=== PATIENT | male | born 1980 | race African-American/Black ===

== ENCOUNTER 2020-07-20 18:30 | Inpatient (IN) | payer OTHER ==
[2020-07-20 19:18] VITALS: BMI 26.4
--- NOTE | 2020-07-20 23:06 | HP ---
CIWA Score Nausea/Vomitin Muscle Tremors: 3 Anxiety: 3 Agitation: 2 Paroxysmal Sweats: 2 Orientation: 1-Uncertain about Date Tacttile Disturbances: 0-None Auditory Disturbances: 0-None Visual Disturbances: 0-None Headache: 3-Moderate CIWA-Ar Total Score: 16 - Admission Criteria OASAS Guidelines: Admission for Medically Managed Detox: Requires at least one of the followin. CIWA greater than 12 2. Seizures within the past 24 hours 3. Delirium tremens within the past 24 hours 4. Hallucinations within the past 24 hours 5. Acute intervention needed for co occurring medical disorder 6. Acute intervention needed for co occurring psychiatric disorder 7. Severe withdrawal that cannot be handled at a lower level of care (continued vomiting, continued diarrhea, abnormal vital signs) requiring intravenous medication and/or fluids 8. Admission [facility] Chief Complaint: Seeking admission to detox from alcohol Allergies/Adverse Reactions: Allergies Allergy/AdvReac Type Severity Reaction Status Date / Time No Known Allergies Allergy Verified 07/20/20 23:38 History of Present Illness: 40 years old male with a long history of alcohol dependence is seeking admission to detox. This is his 1st admission to detox and he reports that his last admission was at [facility]. He drinks 3 pints of Vodka and 2 x 6 packs of Muniz beer. He has medical history of diabetes type 2, hyperlipidemia, psych. history of depression, anxiety and denies suicidal ideation at this time. 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 Exam Limitations: No Limitations - Ebola screening Have you traveled outside of the country in the last 21 days: No Have you had contact with anyone from an Ebola affected area: No Have you been sick,other than usual withdrawal symptoms: No Do you have a fever: No - Review of Systems Constitutional: Chills, Loss of Appetite, Changes in sleep EENT: reports: No Symptoms Reported Respiratory: reports: No Symptoms reported Cardiac: reports: No Symptoms Reported GI: reports: Nausea, Poor Appetite, Abdominal cramping : reports: No Symptoms Reported Musculoskeletal: reports: No Symptoms Reported Integumentary: reports: Dryness, Flushing Neuro: reports: Tremors Endocrine: reports: No Symptoms Reported Hematology: reports: No Symptoms Reported Psychiatric: reports: Mood/Affect Appropiate, Anxious Other Systems: Reviewed and Negative Patient History - Patient Medical History Hx Anemia: No Hx Asthma: No Hx Chronic Obstructive Pulmonary Disease (COPD): No Hx Cancer: No Hx Cardiac Disorders: No Hx Congestive Heart Failure: No Hx Hypertension: No Hx Hypercholesterolemia: Yes HX Cerebrovascular Accident: No Hx Seizures: No Hx Dementia: No Hx Diabetes: Yes Hx Gastrointestinal Disorders: No Hx Liver Disease: No Hx Genitourinary Disorders: No Hx Sexually Transmitted Disorders: No Hx Renal Disease (ESRD): No Hx Thyroid Disease: No Hx Human Immunodeficiency Virus (HIV): No (Negative 2020) Hx Hepatitis C: No Hx Depression: Yes Hx Suicide Attempt: No (Denies suicidal ideation at this time) Hx Bipolar Disorder: No Hx Schizophrenia: Yes - Patient Surgical History Past Surgical History: Yes Hx Neurologic Surgery: No Hx Cataract Extraction: Yes Hx Cardiac Surgery: No Hx Lung Surgery: No Hx Abdominal Surgery: No Hx Appendectomy: No Hx Cholecystectomy: No Hx Genitourinary Surgery: No Hx Orthopedic Surgery: No Anesthesia Reaction: No - PPD History Previous Implant?: Yes Documented Results: Positive w/o proof Implanted On Prior [facility] Admission?: No PPD to be Administered?: Yes - Reproductive History Patient is a Female of Child Bearing Age (11 -55 yrs old): No (Male) - Smoking Cessation Smoking history: Current every day smoker Have you smoked in the past 12 months: Yes Aproximately how many cigarettes per day: 20 Hx Chewing Tobacco Use: No Initiated information on smoking cessation: Yes 'Breaking Loose' booklet given: 07/20/20 - Substance & Tx. History Hx Alcohol Use: Yes Hx Substance Use: Yes Substance Use Type: Alcohol, Cocaine, Marijuana Hx Substance Use Treatment: Yes ([facility]) - Substances abused Alcohol Substance route: Oral Frequency: Daily Amount used: 3 pints of Vodka and 2 x 6 packs of Muniz beer Age of first use: 12 Date of last use: 07/20/20 Admission Physical Exam BHS - Vital Signs Vital Signs: Vital Signs - 24 hr 07/20/20 19:17 Temperature 97.8 F Pulse Rate 87 Respiratory 19 Rate Blood Pressure 130/88 - Physical General Appearance: Yes: Moderate Distress, Intoxicated, Tremorous, Irritable, Sweating HEENTM: Yes: Within Normal Limits Respiratory: Yes: Lungs Clear, Normal Breath Sounds, No Respiratory Distress Neck: Yes: Within Normal Limits Breast: Yes: Breast Exam Deferred Cardiology: Yes: Regular Rhythm, Regular Rate Abdominal: Yes: Normal Bowel Sounds Genitourinary: Yes: Within Normal Limits Back: Yes: Normal Inspection Musculoskeletal: Yes: Back pain, Muscle Pain Extremities: Yes: Tremors Neurological: Yes: Within Normal Limits Integumentary: Yes: Warm Lymphatic: Yes: Within Normal Limits - Diagnostic (1) Alcohol dependence with withdrawal, uncomplicated Current Visit: Yes Status: Acute (2) Nicotine dependence Current Visit: Yes Status: Chronic Qualifiers: Nicotine product type: cigarettes Substance use status: uncomplicated Qualified Code(s): F17.210 - Nicotine dependence, cigarettes, uncomplicated (3) Cocaine dependence Current Visit: Yes Status: Chronic (4) Cannabis dependence Current Visit: Yes Status: Chronic (5) Type 2 diabetes mellitus Current Visit: Yes Status: Chronic Qualifiers: Diabetes mellitus complication status: without complication (6) Depression Current Visit: Yes Status: Chronic Qualifiers: Depression Type: unspecified Qualified Code(s): F32.9 - Major depressive disorder, single episode, unspecified (7) Anxiety Current Visit: Yes Status: Chronic (8) Schizophrenia Current Visit: Yes Status: Chronic (9) Hyperlipidemia Current Visit: Yes Status: Chronic Qualifiers: Hyperlipidemia type: unspecified Qualified Code(s): E78.5 - Hyperlipidemia, unspecified Cleared for Admission S - Detox or Rehab [facility] Level of Care: Medically Managed Detox Regimen/Protocol: Librium Claeared for Rehab Admission: No Breathalyzer - Breathalyzer Breathalyzer: 0.017 Urine Drug Screen - Test Device Lot number: [id number] Expiration date: 06/13/22 - Control Is test valid?: Yes - Results Drug screen NEGATIVE: No Urine drug screen results: THC-Marijuana, CÉSAR-Cocaine Inpatient Rehab Admission - Rehab Decision to Admit Inpatient rehab admission?: No
[2020-07-20] MEDS ORDERED: BISMUTH SUBSALICYLATE 524 MG/30 ML UD PO PRN (23:14)
[2020-07-20] MEDS ORDERED: hydrOXYzine PAMOATE 25 MG CAPSULE (FP) PO PRN (23:14)
[2020-07-20] MEDS ORDERED: ONDANSETRON *ODT* 4 MG TABLET SL PRN (23:14)
[2020-07-20] MEDS ORDERED: MENTHOL/PHENOL 1 EACH UD MM PRN (23:14)
[2020-07-20] MEDS ORDERED: MAGNESIUM CITRATE 300 ML BOTTLE PO PRN (23:14)
[2020-07-20] MEDS ORDERED: METHOCARBAMOL 500 MG TABLET PO PRN (23:14)
[2020-07-20] MEDS ORDERED: NICOTINE POLACRILEX 2 MG GUM BUC PRN (23:14)
[2020-07-20] MEDS ORDERED: chlordiazePOXIDE HCL 25 MG CAPSULE PO PRN (23:14)
[2020-07-20] MEDS ORDERED: MAG HYDROX/AL HYDROX/SIMETH 30 ML UNIT-DOSE CUP PO PRN (23:14)
[2020-07-20] MEDS ORDERED: MAGNESIUM HYDROX 2400MG/30ML ORAL SUSPENSION 30 ML CUP PO PRN (23:14)
[2020-07-20] MEDS ORDERED: ACETAMINOPHEN 325 MG TABLET (FP) PO PRN (23:14)
[2020-07-21] MEDS: chlordiazePOXIDE HCL 25 MG CAPSULE PO SCH ×5 (00:37→22:01)
[2020-07-21] MEDS ORDERED: INSULIN (NOVOLOG) ASPART 100 UNITS/ML 10ML VIAL SQ SCH (06:00)
[2020-07-21] MEDS ORDERED: PATIENT'S OWN MEDICATION (NON-FORMULARY) (Insulin Lispro [Humalog] 5 UNIT) SQ SCH (06:00)
[2020-07-21] MEDS ORDERED: INSULIN SLIDING SCALE (NOVOLOG) 1 VIAL SQ ONE (07:45)
--- NOTE | 2020-07-21 09:01 | EKG ---
Test Reason : Blood Pressure : / mmHG Vent. Rate : 093 BPM Atrial Rate : 093 BPM P-R Int : 170 ms QRS Dur : 080 ms QT Int : 352 ms P-R-T Axes : 061 060 034 degrees QTc Int : 437 ms NORMAL SINUS RHYTHM NORMAL ECG NO PREVIOUS ECGS AVAILABLE Confirmed by JEANINE KUNZ MD ([id number]) on 07/21/2020 9:01:12 AM Referred By: Confirmed By:JEANINE KUNZ MD
[2020-07-21 10:43] LABS: HEMATOCRIT 40.1 % (35.4-49); HEMOGLOBIN 13.3 GM/dL (11.7-16.9); MCH 31.3 pg (25.7-33.7); MCHC 33.3 g/dl (32.0-35.9); MEAN CELL VOLUME 93.9 fl (80-96); MEAN PLT VOLUME 9.9 fl (7.5-11.1); PLATELET COUNT 268 K/MM3 (134-434); RBC 4.27 M/mm3 (4.00-5.60); RDW 13.9 % (11.9-15.9); WHITE BLOOD COUNT 6.7 K/mm3 (4.0-10.0)
[2020-07-21] MEDS: ASPIRIN 81 MG CHEWABLE TABLETS PO SCH (10:50)
[2020-07-21] MEDS: PRENATAL VITAMINS W/ FOLIC ACID TABLET (FP) PO SCH (10:50)
[2020-07-21] MEDS: NICOTINE 14 MG/24 HOURS TOPICAL PATCH TD SCH (10:50)
[2020-07-21 10:58] LABS: ALBUMIN 2.9 g/dl (3.4-5.0); BILIRUBIN,TOTAL 0.2 mg/dL (0.2-1); BLOOD UREA NITROGEN 15.5 mg/dL (7-18); CALCIUM 8.4 mg/dL (8.5-10.1); CREATININE 1.2 mg/dL (0.55-1.3); POTASSIUM 3.9 mmol/L (3.5-5.1); TOT PROT 5.8 g/dl (6.4-8.2)
[2020-07-21] MEDS ORDERED: chlordiazePOXIDE HCL 25 MG CAPSULE PO PRN (11:10)
--- NOTE | 2020-07-21 14:41 | PN ---
S CIWA - CIWA Score Nausea/Vomitin Muscle Tremors: 3 Anxiety: 3 Agitation: 2 Paroxysmal Sweats: No Perspiration Orientation: 0-Oriented Tacttile Disturbances: 1-Very Mild Itch/Numbness Auditory Disturbances: 0-None Visual Disturbances: 0-None Headache: 2-Mild CIWA-Ar Total Score: 13 S Progress Note (SOAP) Subjective: alert,irritable,anxious,interrupted sleep,tremor,aching pain,nausea Objective: 07/21/20 14:39 Vital Signs Temperature 97.5 F L 07/21/20 13:53 Pulse Rate 78 07/21/20 13:53 Respiratory Rate 18 07/21/20 13:53 Blood Pressure 115/70 07/21/20 13:53 O2 Sat by Pulse Oximetry (%) 100 07/21/20 13:53 07/21/20 14:39 Laboratory Last Values WBC 6.7 K/mm3 (4.0-10.0) 07/21/20 08:10 RBC 4.27 M/mm3 (4.00-5.60) 07/21/20 08:10 Hgb 13.3 GM/dL (11.7-16.9) 07/21/20 08:10 Hct 40.1 % (35.4-49) 07/21/20 08:10 MCV 93.9 fl (80-96) 07/21/20 08:10 MCH 31.3 pg (25.7-33.7) 07/21/20 08:10 MCHC 33.3 g/dl (32.0-35.9) 07/21/20 08:10 RDW 13.9 % (11.9-15.9) 07/21/20 08:10 Plt Count 268 K/MM3 (134-434) 07/21/20 08:10 MPV 9.9 fl (7.5-11.1) 07/21/20 08:10 Sodium 143 mmol/L (136-145) 07/21/20 08:10 Potassium 3.9 mmol/L (3.5-5.1) 07/21/20 08:10 Chloride 109 mmol/L (98-107) H 07/21/20 08:10 Carbon Dioxide 29 mmol/L (21-32) 07/21/20 08:10 Anion Gap 6 MMOL/L (8-16) L 07/21/20 08:10 BUN 15.5 mg/dL (7-18) 07/21/20 08:10 Creatinine 1.2 mg/dL (0.55-1.3) 07/21/20 08:10 Est GFR (CKD-EPI)AfAm 86.53 07/21/20 08:10 Est GFR (CKD-EPI)NonAf 74.66 07/21/20 08:10 POC Glucometer 170 UNITS (80-120) 07/21/20 10:52 Random Glucose 131 mg/dL (74-106) H 07/21/20 08:10 Calcium 8.4 mg/dL (8.5-10.1) L 07/21/20 08:10 Total Bilirubin 0.2 mg/dL (0.2-1) 07/21/20 08:10 AST 16 U/L (15-37) 07/21/20 08:10 ALT 17 U/L (13-61) 07/21/20 08:10 Alkaline Phosphatase 59 U/L (45-117) 07/21/20 08:10 Total Protein 5.8 g/dl (6.4-8.2) L 07/21/20 08:10 Albumin 2.9 g/dl (3.4-5.0) L 07/21/20 08:10 Syphilis Serology Non-reactive (NONREACTIVE) 07/21/20 08:10 Assessment: 07/21/20 14:40 withdrawal symptom Plan: continue detox librium regimen,patient would like to take librium as a whole,bgm monitoring achs,with insulin coverage sliding scale
[2020-07-21] MEDS: INSULIN (NOVOLOG) ASPART 100 UNITS/ML 10ML VIAL SQ SCH ×2 (17:45→21:19)
--- NOTE | 2020-07-21 17:45 | CONSULT ---
[facility] Psychiatric Consult - Data Date of interview: 07/21/20 Admission source: [facility] Identifying data: Second visit to [facility] and admission to [address] [place] [address] for this 40 y/o AA male self-referred for detoxification treatment. ZEUS issues : alcohol, cannabis, nicotine. Patient is single, father of one, homeless, unemployed and supported on welfare. Substance Abuse History: Discussed with the patient. ZEUS issues as follows : Smoking history: Current every day smoker. Have you smoked in the past 12 months: Yes. Approximately how many cigarettes per day: 20. Hx Chewing Tobacco Use: No. Initiated information on smoking cessation: Yes. 'Breaking Loose' booklet given: 07/20/20. - Substance & Tx. History. Hx Alcohol Use: Yes. Hx Substance Use: Yes. Substance Use Type: Alcohol, Cocaine, Marijuana. Hx Substance Use Treatment: Yes ([facility]). - Substances abused. Alcohol. Substance route: Oral. Frequency: Daily. Amount used: 3 pints of Vodka and 2 x 6 packs of Muniz beer. Age of first use: 12. Date of last use: 07/20/20. History of prior ZEUS treatment failures. Medical History: Medical profile is remarkable for diabetes mellitus, dyslipidemia and history of surgery (cataract extraction). No known allergies. Psychiatric History: Patient endorses history of two psychiatric hospitalizations at a facility located in [place], [place] (name not recalled). He reports the diagnosis of bipolar disorder and prior treatment with quetiapine. Mr Linda states that he had missed his OPD follow-up appointment at the [facility]. Denies history of suicide attempts. Physical/Sexual Abuse/Trauma History: Patient denies. Additional Comment: Urine drug screen results: THC-Marijuana, CÉSAR-Cocaine. Noted. Mental Status Exam - Mental Status Exam Alert and Oriented to: Time, Place, Person Cognitive Function: Good Patient Appearance: Unkempt, Disheveled Mood: Nervous, Withdrawn Affect: Mood Congruent, Constricted Patient Behavior: Fatigued, Appropriate, Cooperative Speech Pattern: Clear, Appropriate Voice Loudness: Normal Thought Process: Intact, Goal Oriented Thought Disorder: Not Present Hallucinations: Denies Suicidal Ideation: Denies Homicidal Ideation: Denies Insight/Judgement: Poor Sleep: Poorly, Difficulty falling asleep Appetite: Good Gait/Station: Normal Psychiatric Findings - Problem List (Wright 1, 2,3) (1) Alcohol dependence with withdrawal, uncomplicated Current Visit: Yes Status: Acute (2) Cannabis dependence Current Visit: Yes Status: Chronic (3) Cocaine dependence Current Visit: Yes Status: Chronic (4) Nicotine dependence Current Visit: Yes Status: Chronic Qualifiers: Nicotine product type: cigarettes Substance use status: uncomplicated Qualified Code(s): F17.210 - Nicotine dependence, cigarettes, uncomplicated (5) Substance induced mood disorder Current Visit: Yes Status: Chronic (6) History of bipolar disorder Current Visit: Yes Status: Chronic Comment: As per self-report. Not adherent to OPD care. (7) Insomnia Current Visit: Yes Status: Chronic (8) Non-compliance Current Visit: Yes Status: Chronic - Initial Treatment Plan Initial Treatment Plan: Psychoeducation. Sleep hygiene. Support. Detoxification in progress. MAT interventions revisited with the patient. Mr Linda wishes to resume seroquel. Side effects/benefits discussed in session. Seroquel 100 mg po hs. Consent (verbal) granted to MD. Bourne.
[2020-07-21] MEDS ORDERED: PATIENT'S OWN MEDICATION (NON-FORMULARY) (Insulin Glargine,Hum.Rec.Anlog [Basaglar Kwikpen SCJ SCH (22:00)
[2020-07-21] MEDS: THIAMINE HCL 100 MG TABLET (FP) PO SCH (22:02)
[2020-07-21] MEDS: ATORVASTATIN CA 40 MG TABLET (FP) PO SCH (22:02)
[2020-07-21] MEDS: MELATONIN 5 MG TABLETS PO SCH (22:02)
[2020-07-21] MEDS: QUEtiapine FUMARATE 100 MG TABLET (FP) PO SCH (22:02)
[2020-07-21] MEDS: INSULIN (LEVEMIR) 100 UNITS/ML UNITS SQ SCH (22:03)
[2020-07-22] MEDS ORDERED: chlordiazePOXIDE HCL 25 MG CAPSULE PO SCH (05:00)
[2020-07-22] MEDS: chlordiazePOXIDE HCL 25 MG CAPSULE PO SCH ×4 (07:41→22:37)
[2020-07-22] MEDS: INSULIN (NOVOLOG) ASPART 100 UNITS/ML 10ML VIAL SQ SCH ×4 (07:42→23:47)
[2020-07-22] MEDS: PRENATAL VITAMINS W/ FOLIC ACID TABLET (FP) PO SCH (10:23)
[2020-07-22] MEDS: ASPIRIN 81 MG CHEWABLE TABLETS PO SCH (10:23)
[2020-07-22] MEDS: NICOTINE 14 MG/24 HOURS TOPICAL PATCH TD SCH (10:24)
--- NOTE | 2020-07-22 10:26 | PN ---
S CIWA - CIWA Score Nausea/Vomitin-No Nausea/No Vomiting Muscle Tremors: 2 Anxiety: 2 Agitation: 0-Normal Activity Paroxysmal Sweats: 3 Orientation: 0-Oriented Tacttile Disturbances: 0-None Auditory Disturbances: 0-None Visual Disturbances: 0-None Headache: 2-Mild CIWA-Ar Total Score: 9 BHS Progress Note (SOAP) Subjective: c/o sweats, anxiety, shakes, and headache. Objective: 07/22/20 10:24 Vital Signs 07/22/20 07/22/20 05:03 08:36 Temperature 97.5 F L 97.1 F L Pulse Rate 76 78 Respiratory 18 18 Rate Blood Pressure 107/65 139/90 O2 Sat by Pulse 96 Oximetry (%) Laboratory Last Values WBC 6.7 K/mm3 (4.0-10.0) 07/21/20 08:10 RBC 4.27 M/mm3 (4.00-5.60) 07/21/20 08:10 Hgb 13.3 GM/dL (11.7-16.9) 07/21/20 08:10 Hct 40.1 % (35.4-49) 07/21/20 08:10 MCV 93.9 fl (80-96) 07/21/20 08:10 MCH 31.3 pg (25.7-33.7) 07/21/20 08:10 MCHC 33.3 g/dl (32.0-35.9) 07/21/20 08:10 RDW 13.9 % (11.9-15.9) 07/21/20 08:10 Plt Count 268 K/MM3 (134-434) 07/21/20 08:10 MPV 9.9 fl (7.5-11.1) 07/21/20 08:10 Sodium 143 mmol/L (136-145) 07/21/20 08:10 Potassium 3.9 mmol/L (3.5-5.1) 07/21/20 08:10 Chloride 109 mmol/L (98-107) H 07/21/20 08:10 Carbon Dioxide 29 mmol/L (21-32) 07/21/20 08:10 Anion Gap 6 MMOL/L (8-16) L 07/21/20 08:10 BUN 15.5 mg/dL (7-18) 07/21/20 08:10 Creatinine 1.2 mg/dL (0.55-1.3) 07/21/20 08:10 Est GFR (CKD-EPI)AfAm 86.53 07/21/20 08:10 Est GFR (CKD-EPI)NonAf 74.66 07/21/20 08:10 POC Glucometer 168 UNITS (80-120) 07/22/20 07:40 Random Glucose 131 mg/dL (74-106) H 07/21/20 08:10 Calcium 8.4 mg/dL (8.5-10.1) L 07/21/20 08:10 Total Bilirubin 0.2 mg/dL (0.2-1) 07/21/20 08:10 AST 16 U/L (15-37) 07/21/20 08:10 ALT 17 U/L (13-61) 07/21/20 08:10 Alkaline Phosphatase 59 U/L (45-117) 07/21/20 08:10 Total Protein 5.8 g/dl (6.4-8.2) L 07/21/20 08:10 Albumin 2.9 g/dl (3.4-5.0) L 07/21/20 08:10 Syphilis Serology Non-reactive (NONREACTIVE) 07/21/20 08:10 COVID-19 ([facility]) Not detected (Not Detected) 07/20/20 10:25 Labs noted. Assessment: 07/22/20 10:25 AOX3, in no acute respiratory distress. Full ROM, ambulating in the unit. Withdrawal symptoms. Plan: continue detox.
[2020-07-22] MEDS: INSULIN (LEVEMIR) 100 UNITS/ML UNITS SQ SCH (22:37)
[2020-07-22] MEDS: THIAMINE HCL 100 MG TABLET (FP) PO SCH (22:38)
[2020-07-22] MEDS: ATORVASTATIN CA 40 MG TABLET (FP) PO SCH (22:38)
[2020-07-22] MEDS: QUEtiapine FUMARATE 100 MG TABLET (FP) PO SCH (22:40)
[2020-07-22] MEDS: MELATONIN 5 MG TABLETS PO SCH (23:47)
[2020-07-23] MEDS ORDERED: chlordiazePOXIDE HCL 10 MG CAPSULE PO PRN ×2
[2020-07-23] MEDS ORDERED: chlordiazePOXIDE HCL 10 MG CAPSULE PO SCH (05:00)
[2020-07-23] MEDS: chlordiazePOXIDE HCL 10 MG CAPSULE PO SCH ×4 (06:58→22:51)
[2020-07-23] MEDS: INSULIN (NOVOLOG) ASPART 100 UNITS/ML 10ML VIAL SQ SCH ×4 (07:54→22:53)
--- NOTE | 2020-07-23 09:20 | PN ---
S CIWA - CIWA Score Nausea/Vomitin-No Nausea/No Vomiting Muscle Tremors: 2 Anxiety: 2 Agitation: 1-Slight > Activity Paroxysmal Sweats: No Perspiration Orientation: 0-Oriented Tacttile Disturbances: 0-None Auditory Disturbances: 0-None Visual Disturbances: 0-None Headache: 1-Very Mild CIWA-Ar Total Score: 6 BHS Progress Note (SOAP) Subjective: 40 years old male was admitted on 07/20/20 for alcohol withdrawal sx management treating with librium detox regiment mr ceballos demands nutrition supplement demands regular diet not something "special diet" health teaching on insulin dependent diabetes and risks of hyperglycemia mr ceballos wants to be seen by a sales and service associate sales and service associate referral Objective: 07/23/20 09:23 Vital Signs - 24 hr 07/22/20 07/22/20 07/22/20 12:27 16:42 20:42 Temperature 96.9 F L 97.5 F L 97.1 F L Pulse Rate 94 H 96 H 90 Respiratory 18 18 18 Rate Blood Pressure 143/91 139/88 103/65 O2 Sat by Pulse 100 Oximetry (%) 07/23/20 07/23/20 05:12 08:36 Temperature 97.1 F L 96.8 F L Pulse Rate 74 94 H Respiratory 18 18 Rate Blood Pressure 99/69 128/86 O2 Sat by Pulse Oximetry (%) Laboratory Tests 07/20/20 07/21/20 07/21/20 10:25 00:46 06:44 WBC RBC Hgb Hct MCV MCH MCHC RDW Plt Count MPV Sodium Potassium Chloride Carbon Dioxide Anion Gap BUN Creatinine Est GFR (CKD-EPI)AfAm Est GFR (CKD-EPI)NonAf POC Glucometer 175 170 Random Glucose Calcium Total Bilirubin AST ALT Alkaline Phosphatase Total Protein Albumin Syphilis Serology COVID-19 ([facility]) Not detected 07/21/20 07/21/20 07/21/20 08:10 08:10 08:10 WBC 6.7 RBC 4.27 Hgb 13.3 Hct 40.1 MCV 93.9 MCH 31.3 MCHC 33.3 RDW 13.9 Plt Count 268 MPV 9.9 Sodium 143 Potassium 3.9 Chloride 109 H Carbon Dioxide 29 Anion Gap 6 L BUN 15.5 Creatinine 1.2 Est GFR (CKD-EPI)AfAm 86.53 Est GFR (CKD-EPI)NonAf 74.66 POC Glucometer Random Glucose 131 H Calcium 8.4 L Total Bilirubin 0.2 AST 16 ALT 17 Alkaline Phosphatase 59 Total Protein 5.8 L Albumin 2.9 L Syphilis Serology Non-reactive COVID-19 ([facility]) 07/21/20 07/21/20 07/21/20 10:52 16:38 21:16 WBC RBC Hgb Hct MCV MCH MCHC RDW Plt Count MPV Sodium Potassium Chloride Carbon Dioxide Anion Gap BUN Creatinine Est GFR (CKD-EPI)AfAm Est GFR (CKD-EPI)NonAf POC Glucometer 170 203 173 Random Glucose Calcium Total Bilirubin AST ALT Alkaline Phosphatase Total Protein Albumin Syphilis Serology COVID-19 ([facility]) 07/22/20 07/22/20 07/22/20 07:40 12:08 16:45 WBC RBC Hgb Hct MCV MCH MCHC RDW Plt Count MPV Sodium Potassium Chloride Carbon Dioxide Anion Gap BUN Creatinine Est GFR (CKD-EPI)AfAm Est GFR (CKD-EPI)NonAf POC Glucometer 168 215 225 Random Glucose Calcium Total Bilirubin AST ALT Alkaline Phosphatase Total Protein Albumin Syphilis Serology COVID-19 ([facility]) 07/23/20 06:59 WBC RBC Hgb Hct MCV MCH MCHC RDW Plt Count MPV Sodium Potassium Chloride Carbon Dioxide Anion Gap BUN Creatinine Est GFR (CKD-EPI)AfAm Est GFR (CKD-EPI)NonAf POC Glucometer 171 Random Glucose Calcium Total Bilirubin AST ALT Alkaline Phosphatase Total Protein Albumin Syphilis Serology COVID-19 ([facility]) 07/23/20 09:24 insulin dependent diabetes demands regular diet and nutritional supplement Assessment: 07/23/20 09:24 alcohol withdrawal Plan: librium regiment
[2020-07-23] MEDS: ASPIRIN 81 MG CHEWABLE TABLETS PO SCH (10:24)
[2020-07-23] MEDS: NICOTINE 14 MG/24 HOURS TOPICAL PATCH TD SCH (10:24)
[2020-07-23] MEDS: PRENATAL VITAMINS W/ FOLIC ACID TABLET (FP) PO SCH (10:24)
[2020-07-23] MEDS: THIAMINE HCL 100 MG TABLET (FP) PO SCH (22:51)
[2020-07-23] MEDS: ATORVASTATIN CA 40 MG TABLET (FP) PO SCH (22:51)
[2020-07-23] MEDS: QUEtiapine FUMARATE 100 MG TABLET (FP) PO SCH (22:51)
[2020-07-23] MEDS: MELATONIN 5 MG TABLETS PO SCH (22:52)
[2020-07-23] MEDS: INSULIN (LEVEMIR) 100 UNITS/ML UNITS SQ SCH (22:54)
[2020-07-24] MEDS ORDERED: chlordiazePOXIDE HCL 10 MG CAPSULE PO SCH (05:00)
[2020-07-24] MEDS: chlordiazePOXIDE HCL 10 MG CAPSULE PO SCH ×2 (06:05→17:53)
[2020-07-24] MEDS: INSULIN (NOVOLOG) ASPART 100 UNITS/ML 10ML VIAL SQ SCH ×4 (06:49→22:21)
--- NOTE | 2020-07-24 08:13 | PN ---
[facility] Progress Note Note: I was informed at 2.30AM, 4 hours post incident that patient was observed exchanging unknown substance with another patient, V. A. (room 375A). Patient was evaluated in his room. He is alert and oriented x 3, in no acute distress and no change in mental status noted. Vital Signs Temperature 97.6 F 07/24/20 06:21 Pulse Rate 101 H 07/24/20 06:21 Respiratory Rate 18 07/24/20 06:21 Blood Pressure 134/75 07/24/20 06:21 O2 Sat by Pulse Oximetry (%) 99 07/24/20 06:21 Laboratory Last Values WBC 6.7 K/mm3 (4.0-10.0) 07/21/20 08:10 RBC 4.27 M/mm3 (4.00-5.60) 07/21/20 08:10 Hgb 13.3 GM/dL (11.7-16.9) 07/21/20 08:10 Hct 40.1 % (35.4-49) 07/21/20 08:10 MCV 93.9 fl (80-96) 07/21/20 08:10 MCH 31.3 pg (25.7-33.7) 07/21/20 08:10 MCHC 33.3 g/dl (32.0-35.9) 07/21/20 08:10 RDW 13.9 % (11.9-15.9) 07/21/20 08:10 Plt Count 268 K/MM3 (134-434) 07/21/20 08:10 MPV 9.9 fl (7.5-11.1) 07/21/20 08:10 Sodium 143 mmol/L (136-145) 07/21/20 08:10 Potassium 3.9 mmol/L (3.5-5.1) 07/21/20 08:10 Chloride 109 mmol/L (98-107) H 07/21/20 08:10 Carbon Dioxide 29 mmol/L (21-32) 07/21/20 08:10 Anion Gap 6 MMOL/L (8-16) L 07/21/20 08:10 BUN 15.5 mg/dL (7-18) 07/21/20 08:10 Creatinine 1.2 mg/dL (0.55-1.3) 07/21/20 08:10 Est GFR (CKD-EPI)AfAm 86.53 07/21/20 08:10 Est GFR (CKD-EPI)NonAf 74.66 07/21/20 08:10 POC Glucometer 137 UNITS (80-120) 07/24/20 06:08 Random Glucose 131 mg/dL (74-106) H 07/21/20 08:10 Calcium 8.4 mg/dL (8.5-10.1) L 07/21/20 08:10 Total Bilirubin 0.2 mg/dL (0.2-1) 07/21/20 08:10 AST 16 U/L (15-37) 07/21/20 08:10 ALT 17 U/L (13-61) 07/21/20 08:10 Alkaline Phosphatase 59 U/L (45-117) 07/21/20 08:10 Total Protein 5.8 g/dl (6.4-8.2) L 07/21/20 08:10 Albumin 2.9 g/dl (3.4-5.0) L 07/21/20 08:10 Syphilis Serology Non-reactive (NONREACTIVE) 07/21/20 08:10 COVID-19 ([facility]) Not detected (Not Detected) 07/20/20 10:25 Action: Monitor patient
[2020-07-24] MEDS: PRENATAL VITAMINS W/ FOLIC ACID TABLET (FP) PO SCH (10:16)
[2020-07-24] MEDS: ASPIRIN 81 MG CHEWABLE TABLETS PO SCH (10:16)
[2020-07-24] MEDS: NICOTINE 14 MG/24 HOURS TOPICAL PATCH TD SCH (10:17)
[2020-07-24] MEDS: ACETAMINOPHEN 325 MG TABLET (FP) PO PRN ×2 (10:18→22:20)
--- NOTE | 2020-07-24 12:05 | PN ---
S CIWA - CIWA Score Nausea/Vomitin-No Nausea/No Vomiting Muscle Tremors: 2 Anxiety: 2 Agitation: 0-Normal Activity Paroxysmal Sweats: No Perspiration Orientation: 0-Oriented Tacttile Disturbances: 1-Very Mild Itch/Numbness Auditory Disturbances: 0-None Visual Disturbances: 0-None Headache: 0-None Present CIWA-Ar Total Score: 5 BHS Progress Note (SOAP) Subjective: alert,irritable,anxious,aching pain Objective: 07/24/20 12:03 Vital Signs Temperature 97.7 F 07/24/20 09:20 Pulse Rate 107 H 07/24/20 09:20 Respiratory Rate 18 07/24/20 09:20 Blood Pressure 138/96 07/24/20 09:20 O2 Sat by Pulse Oximetry (%) 99 07/24/20 06:21 07/24/20 12:03 bgm 137 Assessment: 07/24/20 12:04 withdrawal symptom Plan: continue detox librium regimen,bgm monitoring with insulin coverage,psychiatric reevaluation for seroquel dose,discharge in am
[2020-07-24] MEDS ORDERED: INSULIN SLIDING SCALE (NOVOLOG) 1 VIAL SQ ONE (16:59)
--- NOTE | 2020-07-24 17:06 | PN ---
Psychiatric Progress Note Vital Signs: Vital Signs Period Temp Pulse Resp BP Sys/Costa Pulse Ox Last 24 Hr 97.1 F-98.6 F 100-110 18-18 110-138/69-96 97-100 Date of Session: 07/24/20 Chief Complaint:: " I need more seroquel. I still cannot sleep at night." HPI: Unventful hospital course except for complaint of insomnia. Patent requested to see the psychiatrist for optimization of seroquel dose. ROS: Unremarkable. Current Medications: Active Medications Generic Name Dose Route Start Last Admin Trade Name Freq PRN Reason Stop Dose Admin Acetaminophen 650 mg 07/20/20 23:14 07/24/20 10:18 Tylenol - PO 650 mg Q6H PRN Administration PAIN LEVEL 4 - 6 Acetaminophen 650 mg 07/20/20 23:14 Tylenol - PO Q6H PRN FEVER Al Hydroxide/Mg Hydroxide 30 ml 07/20/20 23:14 Mylanta Oral Suspension - PO Q6H PRN DYSPEPSIA Aspirin 81 mg 07/21/20 10:00 07/24/20 10:16 Asa - PO 81 mg DAILY ALCIRA Administration Atorvastatin Calcium 40 mg 07/21/20 22:00 07/23/20 22:51 Lipitor - PO 40 mg HS ALCIRA Administration Bismuth Subsalicylate 524 mg 07/20/20 23:14 Pepto-Bismol - PO Q1H PRN DIARRHEA Chlordiazepoxide HCl 10 mg 07/25/20 05:00 Librium - PO 07/25/20 05:01 ONCE@0500 ONE Eucalyptus/Menthol/Phenol/Sorbitol 1 each 07/20/20 23:14 Cepastat Lozenge - MM 07/26/20 23:14 Q4H PRN SORE THROAT Hydroxyzine Pamoate 25 mg 07/20/20 23:14 07/23/20 09:04 Vistaril - PO 07/26/20 23:16 25 mg Q4HWA PRN Administration ANXIETY Ibuprofen 400 mg 07/20/20 23:14 Motrin - PO Q6H PRN PAIN LEVEL 1 - 3 Insulin Aspart 0 units 07/21/20 16:30 07/24/20 11:27 Novolog Vial SQ 10 units ACHS ALCIRA Administration Protocol Insulin Detemir 20 units 07/21/20 22:00 07/23/20 22:54 Levemir Vial SQ 20 units HS ALCIRA Administration Magnesium Citrate 300 ml 07/20/20 23:14 Citroma - PO Q48H PRN CONSTIPATION Magnesium Hydroxide 30 ml 07/20/20 23:14 Milk Of Magnesia - PO PRN PRN CONSTIPATION Melatonin 5 mg 07/21/20 22:00 07/23/20 22:52 Melatonin PO 5 mg HS ALCIRA Administration Methocarbamol 500 mg 07/20/20 23:14 Robaxin - PO 07/26/20 23:14 Q6H PRN MUSCLE SPASMS Nicotine 14 mg 07/21/20 10:00 07/24/20 10:17 Nicoderm Patch - TD Not Given DAILY ALCIRA Nicotine Polacrilex 2 mg 07/20/20 23:14 Nicorette Gum - BUC Q2H PRN NICOTINE REPLACEMENT RX Ondansetron HCl 4 mg 07/20/20 23:14 Zofran Odt - SL Q8H PRN Nausea/Vomiting Multivit/Folic Acid/Iron 1 tab 07/21/20 10:00 07/24/20 10:16 Vitamins (Sjr) - PO 1 tab DAILY ALCIRA Administration Quetiapine Fumarate 100 mg 07/21/20 22:00 07/23/20 22:51 Seroquel - PO 100 mg HS ALCIRA Administration Thiamine HCl 100 mg 07/21/20 22:00 07/23/20 22:51 Vitamin B1 - PO 100 mg HS ALCIRA Administration Medication(s) Change(s): Seroquel is raised to 200 mg po hs (with patient's informed consent). Current Side Effect: No Lab tests ordered: No Lab tests reviewed: Yes Provider note:: Chart reviewed. Patient is interviewed. Patient reports good progress except in the domain of sleep architecture. Wants an increase of seroquel. Stable mental status. Mr Linda is informed of the benefits of good sleep hygiene. Patient is receptive to counseling. Monitor progress. Total face to face time:: 25 Mental Status Exam - Mental Status Exam Alert and Oriented to: Time, Place, Person Cognitive Function: Good Patient Appearance: Disheveled Mood: Withdrawn Affect: Mood Congruent, Constricted Patient Behavior: Fatigued, Appropriate, Cooperative Speech Pattern: Clear, Appropriate Voice Loudness: Normal Thought Process: Intact, Goal Oriented Thought Disorder: Not Present Hallucinations: Denies Suicidal Ideation: Denies Homicidal Ideation: Denies Insight/Judgement: Poor Sleep: Poorly, Difficulty falling asleep Appetite: Good Gait/Station: Normal Psychiatric Treatment Plan - Problem List (1) Alcohol dependence with withdrawal, uncomplicated Current Visit: Yes Comment: . (2) Cannabis dependence Current Visit: Yes Comment: . (3) Cocaine dependence Current Visit: Yes Comment: . (4) Nicotine dependence Current Visit: Yes Qualifiers: Nicotine product type: cigarettes Substance use status: uncomplicated Qualified Code(s): F17.210 - Nicotine dependence, cigarettes, uncomplicated Comment: . (5) Substance induced mood disorder Current Visit: Yes Comment: . (6) History of bipolar disorder Current Visit: Yes Comment: .As per self-report. Not adherent to OPD care. (7) Insomnia Current Visit: Yes Comment: .
[2020-07-24] MEDS: IBUPROFEN 400 MG TABLET (FP) PO PRN (17:55)
[2020-07-24] MEDS ORDERED: QUEtiapine FUMARATE 200 MG TABLET PO SCH (22:00)
[2020-07-24] MEDS: MELATONIN 5 MG TABLETS PO SCH (22:18)
[2020-07-24] MEDS: THIAMINE HCL 100 MG TABLET (FP) PO SCH (22:18)
[2020-07-24] MEDS: ATORVASTATIN CA 40 MG TABLET (FP) PO SCH (22:18)
[2020-07-24] MEDS: INSULIN (LEVEMIR) 100 UNITS/ML UNITS SQ SCH (22:21)
[2020-07-25] MEDS ORDERED: chlordiazePOXIDE HCL 10 MG CAPSULE PO ONE ×2 (05:00)
[2020-07-25] MEDS: INSULIN (NOVOLOG) ASPART 100 UNITS/ML 10ML VIAL SQ SCH ×2 (06:26→11:00)
[2020-07-25] MEDS: ACETAMINOPHEN 325 MG TABLET (FP) PO PRN (06:31)
--- NOTE | 2020-07-25 10:46 | PN ---
S CIWA - CIWA Score Nausea/Vomitin-No Nausea/No Vomiting Muscle Tremors: None Anxiety: 1-Mildly Anxious Agitation: 0-Normal Activity Paroxysmal Sweats: No Perspiration Orientation: 0-Oriented Tacttile Disturbances: 0-None Auditory Disturbances: 0-None Visual Disturbances: 0-None Headache: 0-None Present CIWA-Ar Total Score: 1 S Progress Note (SOAP) Subjective: alert,no complaint Objective: 07/25/20 11:28 Vital Signs Temperature 97.1 F L 07/25/20 08:57 Pulse Rate 100 H 07/25/20 08:57 Respiratory Rate 18 07/25/20 08:57 Blood Pressure 119/84 07/25/20 08:57 O2 Sat by Pulse Oximetry (%) 99 07/25/20 05:51 07/25/20 11:30 bgn 151 Assessment: 07/25/20 11:31 detox completed,no withdrawal symptom Plan: stable for discharge today,follow up with after care program as arrangement ,bgm monitoring with injulin coverage
--- NOTE | 2020-07-25 10:46 | DS ---
[facility] Detox Discharge Summary Admission Date: 07/20/20 Discharge Date: 07/25/20 - History Present History: Alcohol Dependence, Cannabis Dependence, Cocaine Dependence Additional Comments: alert,oriented x 3 lung clear on auscultation abdomen soft,no pain,no tenderness ambulation on the unit stable for discharge follow up with after care program [facility] as arrangement Pertinent Past History: iddm history of bipolar disorder - Physical Exam Results Vital Signs: Vital Signs Temperature 97.1 F L 07/25/20 08:57 Pulse Rate 100 H 07/25/20 08:57 Respiratory Rate 18 07/25/20 08:57 Blood Pressure 119/84 07/25/20 08:57 O2 Sat by Pulse Oximetry (%) 99 07/25/20 05:51 Pertinent Admission Physical Exam Findings: withdrawal sings and symptom Laboratory Last Values WBC 6.7 K/mm3 (4.0-10.0) 07/21/20 08:10 RBC 4.27 M/mm3 (4.00-5.60) 07/21/20 08:10 Hgb 13.3 GM/dL (11.7-16.9) 07/21/20 08:10 Hct 40.1 % (35.4-49) 07/21/20 08:10 MCV 93.9 fl (80-96) 07/21/20 08:10 MCH 31.3 pg (25.7-33.7) 07/21/20 08:10 MCHC 33.3 g/dl (32.0-35.9) 07/21/20 08:10 RDW 13.9 % (11.9-15.9) 07/21/20 08:10 Plt Count 268 K/MM3 (134-434) 07/21/20 08:10 MPV 9.9 fl (7.5-11.1) 07/21/20 08:10 Sodium 143 mmol/L (136-145) 07/21/20 08:10 Potassium 3.9 mmol/L (3.5-5.1) 07/21/20 08:10 Chloride 109 mmol/L (98-107) H 07/21/20 08:10 Carbon Dioxide 29 mmol/L (21-32) 07/21/20 08:10 Anion Gap 6 MMOL/L (8-16) L 07/21/20 08:10 BUN 15.5 mg/dL (7-18) 07/21/20 08:10 Creatinine 1.2 mg/dL (0.55-1.3) 07/21/20 08:10 Est GFR (CKD-EPI)AfAm 86.53 07/21/20 08:10 Est GFR (CKD-EPI)NonAf 74.66 07/21/20 08:10 POC Glucometer 313 UNITS (80-120) 07/25/20 10:55 Random Glucose 131 mg/dL (74-106) H 07/21/20 08:10 Calcium 8.4 mg/dL (8.5-10.1) L 07/21/20 08:10 Total Bilirubin 0.2 mg/dL (0.2-1) 07/21/20 08:10 AST 16 U/L (15-37) 07/21/20 08:10 ALT 17 U/L (13-61) 07/21/20 08:10 Alkaline Phosphatase 59 U/L (45-117) 07/21/20 08:10 Total Protein 5.8 g/dl (6.4-8.2) L 07/21/20 08:10 Albumin 2.9 g/dl (3.4-5.0) L 07/21/20 08:10 Syphilis Serology Non-reactive (NONREACTIVE) 07/21/20 08:10 COVID-19 (ABNER) Not detected (Not Detected) 07/20/20 10:25 Vital Signs Temperature 97.1 F L 07/25/20 08:57 Pulse Rate 100 H 07/25/20 08:57 Respiratory Rate 18 07/25/20 08:57 Blood Pressure 119/84 07/25/20 08:57 O2 Sat by Pulse Oximetry (%) 99 07/25/20 05:51 - Treatment Hospital Course: Detox Protocol Followed, Detoxed Safely, Responded well, Discharged Condition Good, Rehab Referral Accepted Patient has Accepted a Rehab Referral to: [facility] - Medication Discharge Medications: Ambulatory Orders Aspirin [ASA -] 1 tablet PO DAILY 07/20/20 Atorvastatin Ca [Lipitor] 40 mg PO HS 07/20/20 Folic Acid 1 mg PO DAILY 07/20/20 Insulin Glargine,Hum.rec.anlog [Basaglar Kwikpen U-100] 20 unit SCJ HS 07/20/20 Insulin Lispro [Humalog] 5 unit SQ TID 07/20/20 Multivitamin [Tab-A-Hailey] 1 tablet PO DAILY 07/20/20 Quetiapine Fumarate [Seroquel -] 50 mg PO HS 07/20/20 Thiamine Mononitrate [Vitamin B-1] 100 mg PO DAILY 07/20/20 - Diagnosis (1) Alcohol dependence with withdrawal, uncomplicated Current Visit: Yes Status: Acute (2) IDDM (insulin dependent diabetes mellitus) Current Visit: Yes Status: Acute (3) Cannabis dependence Current Visit: Yes Status: Chronic (4) Cocaine dependence Current Visit: Yes Status: Chronic (5) History of bipolar disorder Current Visit: Yes Status: Chronic - AMA Did Patient Leave Against Medical Advice: No
[2020-07-25] MEDS: PRENATAL VITAMINS W/ FOLIC ACID TABLET (FP) PO SCH (10:53)
[2020-07-25] MEDS: ASPIRIN 81 MG CHEWABLE TABLETS PO SCH (10:53)
[2020-07-25] MEDS: IBUPROFEN 400 MG TABLET (FP) PO PRN (10:58)
[2020-07-25] MEDS ORDERED: INSULIN SLIDING SCALE (NOVOLOG) 1 VIAL SQ ONE (11:00)
[2020-07-25] MEDS: NICOTINE 14 MG/24 HOURS TOPICAL PATCH TD SCH (11:07)
[2020-07-25 13:27] VITALS: BP 139/80; PULSE 108; TEMP 97.3
== END 2020-07-25 13:50 | disposition other institution (70) | DRG 774 ==
LOC: YASAS 18:30 → Y3N 23:16
PROVIDERS: ADMIT Allergy & Immunology; ATTEND Allergy & Immunology
PROC: HZ2ZZZZ Detoxification Services for Substance Abuse Treatment (ICD-10-PCS; principal; 2020-07-20)
DX: F10.230 Alcohol dependence with withdrawal, uncomplicated (principal); F14.20 Cocaine dependence, uncomplicated; F12.20 Cannabis dependence, uncomplicated; F17.210 Nicotine dependence, cigarettes, uncomplicated; F19.24 Other psychoactive substance dependence with psychoactive substance-induced mood disorder; F20.9 Schizophrenia, unspecified; F31.9 Bipolar disorder, unspecified; F41.9 Anxiety disorder, unspecified; E10.9 Type 1 diabetes mellitus without complications; Z79.4 Long term (current) use of insulin; E78.5 Hyperlipidemia, unspecified; G47.00 Insomnia, unspecified; Z86.59 Personal history of other mental and behavioral disorders; Z91.19 Patient's noncompliance with other medical treatment and regimen; Z56.0 Unemployment, unspecified; Z59.0 Homelessness
CPT/HCPCS: 36415; 80053; 82962; 85027; 86780; 93005; 93010; U0003

== ENCOUNTER 2020-07-25 14:07 | Inpatient (IN) | payer OTHER ==
--- NOTE | 2020-07-25 14:58 | HP ---
[facility] Re[facility] Assess/Revision - Admission History Admitted to Rehab from: [facility] Date of Admission to Rehab: 07/25/20 - Findings Detox History & Physical reviewed: Yes Concur with findings: Yes Comments/Additional Findings: transferred from detox to rehab admission as per protocol Inpatient Rehab Admission - Rehab Decision to Admit Inpatient rehab admission?: Yes - Initial Determination Are CD services needed?: Yes Free of communicable disease: Yes Not in need of hospitalization: Yes - Rehab Admission Criteria Previous failed treatment: Yes Poor recovery environment: Yes Comorbidities: Yes Lacks judgement: Yes Patient is meeting Inpatient Rehab admission criteria:: Yes
[2020-07-25] MEDS ORDERED: MAGNESIUM CITRATE 300 ML BOTTLE PO PRN (15:03)
[2020-07-25] MEDS ORDERED: LOPERAMIDE HCL 2 MG CAPSULE PO PRN (15:03)
[2020-07-25] MEDS ORDERED: P-EPHED 60MG/TRIPROLIDI 2.5MG TABLET PO PRN (15:03)
[2020-07-25] MEDS ORDERED: NICOTINE POLACRILEX 2 MG GUM BUC PRN (15:03)
[2020-07-25] MEDS ORDERED: MAGNESIUM HYDROX 2400MG/30ML ORAL SUSPENSION 30 ML CUP PO PRN (15:03)
[2020-07-25] MEDS ORDERED: guaiFENesin 200 MG/10 ML 10 ML UNIT-DOSE CUPS PO PRN (15:03)
[2020-07-25] MEDS: INSULIN SLIDING SCALE (NOVOLOG) 1 VIAL SQ SCH ×2 (16:55→21:06)
[2020-07-25] MEDS: INSULIN (NOVOLOG) ASPART 100 UNITS/ML 10ML VIAL SQ SCH (16:56)
[2020-07-25] MEDS: ACETAMINOPHEN 325 MG TABLET (FP) PO PRN (16:57)
[2020-07-25] MEDS: INSULIN (LEVEMIR) 100 UNITS/ML UNITS SQ SCH (21:08)
[2020-07-25] MEDS: ATORVASTATIN CA 40 MG TABLET (FP) PO SCH (21:09)
[2020-07-25] MEDS: THIAMINE HCL 100 MG TABLET (FP) PO SCH (21:09)
[2020-07-25] MEDS: MELATONIN 5 MG TABLETS PO SCH (21:09)
[2020-07-25] MEDS: IBUPROFEN 400 MG TABLET (FP) PO PRN (21:12)
[2020-07-25] MEDS ORDERED: QUEtiapine FUMARATE 200 MG TABLET PO SCH (22:00)
[2020-07-26] MEDS: INSULIN SLIDING SCALE (NOVOLOG) 1 VIAL SQ SCH ×4 (08:14→21:21)
[2020-07-26] MEDS: INSULIN (NOVOLOG) ASPART 100 UNITS/ML 10ML VIAL SQ SCH ×3 (08:15→16:52)
[2020-07-26] MEDS: ASPIRIN 81 MG CHEWABLE TABLETS PO SCH (10:21)
[2020-07-26] MEDS: PRENATAL VITAMINS W/ FOLIC ACID TABLET (FP) PO SCH (10:21)
[2020-07-26] MEDS: NICOTINE 7 MG/24 HOURS TOPICAL PATCH TD SCH (10:22)
[2020-07-26] MEDS: IBUPROFEN 400 MG TABLET (FP) PO PRN (10:23)
--- NOTE | 2020-07-26 13:35 | PN ---
[facility] Progress Note Note: Pt is a 40 y/o male admitted to rehab from [address] [place] [address] yesterday with ZEUS hx alcohol, cocaine and marijuana. PMHx:DM, HLD PSHx: Catarract Sx Psych Hx:Schizophrenia,depression,anxiety Pt stated to staff that he takes Metformin. Pt's home pharmacy was called to verify. As per pharmacist, pt not on Metformin on their profile. Medications verified were: Aspirin 81 mg po daily Basaglar 20 units SC HS Insulin Lispro 5 Units SC TID Seroquel 50 mg po HS Folic Acid 1 mg po daily Thiamine B-1 100 mg po daily Multivitamin 1 tab po daily Atorvastatin 40 mg po HS Vital Signs - 24 hr 07/25/20 07/25/20 07/25/20 14:14 14:15 19:19 Temperature 98.0 F Pulse Rate 108 H Blood Pressure 124/70 O2 Sat by Pulse 96 96 Oximetry (%) 07/26/20 07:01 Temperature Pulse Rate Blood Pressure O2 Sat by Pulse 96 Oximetry (%) Laboratory Tests 07/25/20 07/25/20 07/26/20 16:51 20:05 07:45 POC Glucometer 353 362 HIV Ag/Ab Combo Qual Negative 07/26/20 07/26/20 07/26/20 08:12 11:37 16:51 POC Glucometer 173 134 204 HIV Ag/Ab Combo Qual Alert o x 3 nad oob ambulating with steady gait S/P detox maintain safety continue present care
--- NOTE | 2020-07-26 16:56 | CONSULT ---
[facility] Psychiatric Consult - Data Date of interview: 07/26/20 Admission source: [facility] Identifying data: Patient is a 40 year old single black male, father of one, unemployed, homeless, and is not currently receiving financial assistance. This is patient's first admission to rehab at [facility]. Patient admitted to rehab for alcohol, cocaine, and marijuana dependence. Substance Abuse History: Smoking history: Current every day smoker. Have you smoked in the past 12 months: Yes. Approximately how many cigarettes per day: 20. Hx Chewing Tobacco Use: No. Initiated information on smoking cessation: Yes. 'Breaking Loose' booklet given: 07/20/20. - Substance & Tx. History. Hx Alcohol Use: Yes. Hx Substance Use: Yes. Substance Use Type: Alcohol, Cocaine, Marijuana. Hx Substance Use Treatment: Yes ([facility], [facility]). - Substances abused. Alcohol. Substance route: Oral. Frequency: Daily. Amount used: 3 pints of Vodka and 2 x 6 packs of Muniz beer. Age of first use: 12. Date of last use: 07/20/20. History of prior ZEUS treatment failures. Medical History: Medical profile is remarkable for diabetes mellitus, dyslipidemia and history of surgery (cataract extraction). Psychiatric History: Mr. Linda reports history of two psychiatric hospitalizations at a facility in [place]. States that his most recent hospitalization was five months ago although is unsure of which [place] [facility] [place] States that he was admitted due to auditory hallucinations. Mr. Linda reports a diagnosis of Bipolar disorder + Schizophrenia. Patient denies current outpatient psychiatric care although Dr. Jean-Baptiste note states that patient was receiving OPD at [facility]. Patient was resumed on Seroquel 100mg by Dr. Jean-Baptiste but was later increased to 200mg due to insomnia. No reported history of suicide attempt. At present patient denies auditory/ visual hallucinations, suicidal/ homicidal ideation, however reports difficulty sleeping and mild irritability throughout the day. Physical/Sexual Abuse/Trauma History: denies. Mental Status Exam - Mental Status Exam Alert and Oriented to: Time, Place, Person Cognitive Function: Good Patient Appearance: Disheveled Mood: Withdrawn Affect: Mood Congruent, Constricted Patient Behavior: Cooperative Speech Pattern: Appropriate Voice Loudness: Normal Thought Process: Goal Oriented Thought Disorder: Not Present Hallucinations: Denies Suicidal Ideation: Denies Homicidal Ideation: Denies Insight/Judgement: Poor Sleep: Poorly Appetite: Fair Muscle strength/Tone: Normal Gait/Station: Normal Psychiatric Findings - Problem List ([place]edar 1, 2,3) (1) Alcohol use disorder Current Visit: Yes Status: Acute (2) Cannabis dependence Current Visit: Yes Status: Chronic Comment: . (3) Cocaine dependence Current Visit: Yes Status: Chronic Comment: . (4) History of bipolar disorder Current Visit: Yes Status: Chronic Comment: .As per self-report. Not adherent to OPD care. (5) Substance-induced sleep disorder Current Visit: Yes Status: Acute - Initial Treatment Plan Initial Treatment Plan: Psychoeducation provided. Detoxification in progress. Will d/c Seroquel 200mg HS. Will order Seroquel 50mg daily + Seroquel 250mg HS. Benefits and side effects discussed. Verbal consent given.
[2020-07-26] MEDS ORDERED: QUEtiapine FUMARATE 50 MG TABLET ONE (21:17)
[2020-07-26] MEDS: QUETIAPINE FUMARATE 200 MG, QUETIAPINE FUMARATE 50 MG PO SCH (21:17)
[2020-07-26] MEDS ORDERED: QUEtiapine FUMARATE 200 MG TABLET ONE (21:17)
[2020-07-26] MEDS: MELATONIN 5 MG TABLETS PO SCH (21:18)
[2020-07-26] MEDS: ATORVASTATIN CA 40 MG TABLET (FP) PO SCH (21:18)
[2020-07-26] MEDS: THIAMINE HCL 100 MG TABLET (FP) PO SCH (21:18)
[2020-07-26] MEDS: ACETAMINOPHEN 325 MG TABLET (FP) PO PRN (21:18)
[2020-07-26] MEDS: INSULIN (LEVEMIR) 100 UNITS/ML UNITS SQ SCH (21:22)
[2020-07-26] MEDS ORDERED: QUEtiapine FUMARATE 200 MG TABLET PO SCH (22:00)
[2020-07-27] MEDS: INSULIN SLIDING SCALE (NOVOLOG) 1 VIAL SQ SCH ×4 (06:39→22:04)
[2020-07-27] MEDS: IBUPROFEN 400 MG TABLET (FP) PO PRN ×2 (06:40→22:00)
[2020-07-27] MEDS: INSULIN (NOVOLOG) ASPART 100 UNITS/ML 10ML VIAL SQ SCH ×3 (06:41→16:47)
[2020-07-27] MEDS: ASPIRIN 81 MG CHEWABLE TABLETS PO SCH (10:26)
[2020-07-27] MEDS: NICOTINE 7 MG/24 HOURS TOPICAL PATCH TD SCH (10:26)
[2020-07-27] MEDS: PRENATAL VITAMINS W/ FOLIC ACID TABLET (FP) PO SCH (10:26)
[2020-07-27] MEDS: QUEtiapine FUMARATE 50 MG TABLET PO SCH (10:26)
[2020-07-27] MEDS: ACETAMINOPHEN 325 MG TABLET (FP) PO PRN (10:28)
[2020-07-27] MEDS ORDERED: QUEtiapine FUMARATE 50 MG TABLET ONE (19:34)
[2020-07-27] MEDS ORDERED: QUEtiapine FUMARATE 200 MG TABLET ONE (19:35)
[2020-07-27] MEDS: THIAMINE HCL 100 MG TABLET (FP) PO SCH (21:56)
[2020-07-27] MEDS: QUETIAPINE FUMARATE 200 MG, QUETIAPINE FUMARATE 50 MG PO SCH (21:56)
[2020-07-27] MEDS: ATORVASTATIN CA 40 MG TABLET (FP) PO SCH (21:57)
[2020-07-27] MEDS: INSULIN (LEVEMIR) 100 UNITS/ML UNITS SQ SCH (21:59)
[2020-07-27] MEDS: MELATONIN 5 MG TABLETS PO SCH (22:04)
[2020-07-28] MEDS ORDERED: INSULIN (NOVOLOG) ASPART 100 UNITS/ML 10ML VIAL ONE ×2 (07:22→22:26)
[2020-07-28] MEDS: INSULIN (NOVOLOG) ASPART 100 UNITS/ML 10ML VIAL SQ SCH ×3 (07:55→16:41)
[2020-07-28] MEDS: INSULIN SLIDING SCALE (NOVOLOG) 1 VIAL SQ SCH ×4 (07:56→21:18)
[2020-07-28] MEDS: IBUPROFEN 400 MG TABLET (FP) PO PRN (10:14)
[2020-07-28] MEDS: PRENATAL VITAMINS W/ FOLIC ACID TABLET (FP) PO SCH (10:15)
[2020-07-28] MEDS: QUEtiapine FUMARATE 50 MG TABLET PO SCH (10:15)
[2020-07-28] MEDS: ASPIRIN 81 MG CHEWABLE TABLETS PO SCH (10:15)
[2020-07-28] MEDS ORDERED: QUEtiapine FUMARATE 200 MG TABLET ONE (20:05)
[2020-07-28] MEDS ORDERED: QUEtiapine FUMARATE 50 MG TABLET ONE (20:05)
[2020-07-28] MEDS: INSULIN (LEVEMIR) 100 UNITS/ML UNITS SQ SCH (21:17)
[2020-07-28] MEDS: THIAMINE HCL 100 MG TABLET (FP) PO SCH (21:19)
[2020-07-28] MEDS: ATORVASTATIN CA 40 MG TABLET (FP) PO SCH (21:20)
[2020-07-28] MEDS: MELATONIN 5 MG TABLETS PO SCH (21:20)
[2020-07-28] MEDS: QUETIAPINE FUMARATE 200 MG, QUETIAPINE FUMARATE 50 MG PO SCH (21:20)
[2020-07-28] MEDS: IBUPROFEN 600 MG TABLET (FP) PO PRN (21:22)
[2020-07-29] MEDS: IBUPROFEN 600 MG TABLET (FP) PO PRN ×3 (06:38→21:13)
[2020-07-29] MEDS ORDERED: INSULIN (NOVOLOG) ASPART 100 UNITS/ML 10ML VIAL ONE ×2 (07:08→12:01)
[2020-07-29] MEDS: INSULIN (NOVOLOG) ASPART 100 UNITS/ML 10ML VIAL SQ SCH ×3 (07:56→16:59)
[2020-07-29] MEDS: INSULIN SLIDING SCALE (NOVOLOG) 1 VIAL SQ SCH ×4 (07:57→21:09)
[2020-07-29] MEDS: ASPIRIN 81 MG CHEWABLE TABLETS PO SCH (09:48)
[2020-07-29] MEDS: PRENATAL VITAMINS W/ FOLIC ACID TABLET (FP) PO SCH (09:48)
[2020-07-29] MEDS: QUEtiapine FUMARATE 50 MG TABLET PO SCH (09:48)
[2020-07-29] MEDS ORDERED: QUEtiapine FUMARATE 200 MG TABLET ONE (19:24)
[2020-07-29] MEDS ORDERED: QUEtiapine FUMARATE 50 MG TABLET ONE (19:24)
[2020-07-29] MEDS: INSULIN (LEVEMIR) 100 UNITS/ML UNITS SQ SCH (21:09)
[2020-07-29] MEDS: ATORVASTATIN CA 40 MG TABLET (FP) PO SCH (21:12)
[2020-07-29] MEDS: QUETIAPINE FUMARATE 200 MG, QUETIAPINE FUMARATE 50 MG PO SCH (21:12)
[2020-07-29] MEDS: THIAMINE HCL 100 MG TABLET (FP) PO SCH (21:12)
[2020-07-29] MEDS: MELATONIN 5 MG TABLETS PO SCH (21:12)
[2020-07-30] MEDS: INSULIN SLIDING SCALE (NOVOLOG) 1 VIAL SQ SCH ×4 (07:23→21:20)
[2020-07-30] MEDS: INSULIN (NOVOLOG) ASPART 100 UNITS/ML 10ML VIAL SQ SCH ×3 (07:23→17:07)
[2020-07-30] MEDS: IBUPROFEN 600 MG TABLET (FP) PO PRN (07:41)
[2020-07-30] MEDS: QUEtiapine FUMARATE 50 MG TABLET PO SCH (09:58)
[2020-07-30] MEDS: ASPIRIN 81 MG CHEWABLE TABLETS PO SCH (09:58)
[2020-07-30] MEDS: PRENATAL VITAMINS W/ FOLIC ACID TABLET (FP) PO SCH (09:58)
[2020-07-30] MEDS ORDERED: QUEtiapine FUMARATE 200 MG TABLET ONE (19:50)
[2020-07-30] MEDS ORDERED: QUEtiapine FUMARATE 50 MG TABLET ONE (19:50)
[2020-07-30] MEDS: INSULIN (LEVEMIR) 100 UNITS/ML UNITS SQ SCH (21:18)
[2020-07-30] MEDS: QUETIAPINE FUMARATE 200 MG, QUETIAPINE FUMARATE 50 MG PO SCH (21:21)
[2020-07-30] MEDS: MELATONIN 5 MG TABLETS PO SCH (21:22)
[2020-07-30] MEDS: ATORVASTATIN CA 40 MG TABLET (FP) PO SCH (21:22)
[2020-07-30] MEDS: ACETAMINOPHEN 325 MG TABLET (FP) PO PRN (21:22)
[2020-07-30] MEDS: THIAMINE HCL 100 MG TABLET (FP) PO SCH (21:22)
[2020-07-31] MEDS ORDERED: INSULIN (NOVOLOG) ASPART 100 UNITS/ML 10ML VIAL ONE (07:00)
[2020-07-31] MEDS: IBUPROFEN 600 MG TABLET (FP) PO PRN (07:27)
[2020-07-31] MEDS: INSULIN (NOVOLOG) ASPART 100 UNITS/ML 10ML VIAL SQ SCH ×3 (07:32→17:37)
[2020-07-31] MEDS: INSULIN SLIDING SCALE (NOVOLOG) 1 VIAL SQ SCH ×4 (07:33→21:14)
[2020-07-31] MEDS: QUEtiapine FUMARATE 50 MG TABLET PO SCH (10:18)
[2020-07-31] MEDS: ACETAMINOPHEN 325 MG TABLET (FP) PO PRN ×2 (10:18→21:16)
[2020-07-31] MEDS: ASPIRIN 81 MG CHEWABLE TABLETS PO SCH (10:18)
[2020-07-31] MEDS: PRENATAL VITAMINS W/ FOLIC ACID TABLET (FP) PO SCH (10:18)
[2020-07-31] MEDS ORDERED: QUEtiapine FUMARATE 50 MG TABLET ONE (19:31)
[2020-07-31] MEDS ORDERED: QUEtiapine FUMARATE 200 MG TABLET ONE (19:31)
[2020-07-31] MEDS: INSULIN (LEVEMIR) 100 UNITS/ML UNITS SQ SCH (21:13)
[2020-07-31] MEDS: QUETIAPINE FUMARATE 200 MG, QUETIAPINE FUMARATE 50 MG PO SCH (21:15)
[2020-07-31] MEDS: THIAMINE HCL 100 MG TABLET (FP) PO SCH (21:15)
[2020-07-31] MEDS: MELATONIN 5 MG TABLETS PO SCH (21:16)
[2020-07-31] MEDS: ATORVASTATIN CA 40 MG TABLET (FP) PO SCH (21:17)
[2020-07-31] MEDS: BENZOCAINE 20 % GEL TUBE MM PRN (23:51)
[2020-08-01] MEDS: IBUPROFEN 600 MG TABLET (FP) PO PRN ×2 (06:26→21:08)
[2020-08-01] MEDS: INSULIN SLIDING SCALE (NOVOLOG) 1 VIAL SQ SCH ×4 (06:26→21:11)
[2020-08-01] MEDS: INSULIN (NOVOLOG) ASPART 100 UNITS/ML 10ML VIAL SQ SCH ×3 (06:42→16:29)
[2020-08-01] MEDS: ASPIRIN 81 MG CHEWABLE TABLETS PO SCH (10:10)
[2020-08-01] MEDS: QUEtiapine FUMARATE 50 MG TABLET PO SCH (10:10)
[2020-08-01] MEDS: PRENATAL VITAMINS W/ FOLIC ACID TABLET (FP) PO SCH (10:10)
[2020-08-01] MEDS: ACETAMINOPHEN 325 MG TABLET (FP) PO PRN (10:11)
--- NOTE | 2020-08-01 11:34 | PN ---
[facility] Progress Note Note: Patient reports sleeping poorly despite taking Seroquel 250 mg/hs and Melatonin 5 mg/hs. He said that he wakes up several times at night. Discussed with patient following changes: Seroquel dosage to be increased to 300 mg/hs and Belsonmra 10 mg/hs prn to be substituted for Melatonin. Patient is in agreement with the [facility] nge.
--- NOTE | 2020-08-01 11:41 | PN ---
[facility] Progress Note (SOAP) Subjective: pt c/o tooth ache.. Hx dental carries and fillings. Fillings falling off and says he will need to go back to the dentist. Objective: 08/01/20 11:38 Vital Signs - 24 hr 07/31/20 07/31/20 08/01/20 12:44 20:25 06:17 Temperature 97.7 F Pulse Rate 86 Respiratory 18 Rate Blood Pressure 120/77 O2 Sat by Pulse 95 96 94 L Oximetry (%) Alert o x 3 nad oob ambulating with steady gait oral exam:Teeth in poor state of repair, Numerous fillings; Left lower Molars with wearing out fillings, redness/swelling to gum Assessment: 08/01/20 11:40 gingivitis Plan: Amoxicillin 500 mg po tid x 7 days motrin prn d/w pt to follow up with his dentist after rehab tx.
[2020-08-01] MEDS: AMOXICILLIN 500 MG CAPSULE (FP) PO SCH ×2 (14:15→21:07)
[2020-08-01] MEDS: MAG HYDROX/AL HYDROX/SIMETH 30 ML UNIT-DOSE CUP PO PRN (15:15)
[2020-08-01] MEDS: THIAMINE HCL 100 MG TABLET (FP) PO SCH (21:07)
[2020-08-01] MEDS: QUEtiapine FUMARATE 300 MG TABLET PO SCH (21:07)
[2020-08-01] MEDS: SUVOREXANT 10 MG TABLET PO PRN (21:08)
[2020-08-01] MEDS: ATORVASTATIN CA 40 MG TABLET (FP) PO SCH (21:08)
[2020-08-01] MEDS: LIDOCAINE VISCOUS 2% ORAL/TOP 20 ML UNIT-DOSE CUP MM PRN (21:09)
[2020-08-01] MEDS: INSULIN (LEVEMIR) 100 UNITS/ML UNITS SQ SCH (21:10)
[2020-08-01] MEDS ORDERED: INSULIN (NOVOLOG) ASPART 100 UNITS/ML 10ML VIAL ONE (22:00)
[2020-08-02] MEDS: AMOXICILLIN 500 MG CAPSULE (FP) PO SCH ×3 (06:40→21:14)
[2020-08-02] MEDS: IBUPROFEN 600 MG TABLET (FP) PO PRN ×3 (06:42→21:15)
[2020-08-02] MEDS ORDERED: INSULIN (NOVOLOG) ASPART 100 UNITS/ML 10ML VIAL ONE ×2 (06:47→11:59)
[2020-08-02] MEDS: INSULIN SLIDING SCALE (NOVOLOG) 1 VIAL SQ SCH ×4 (06:50→21:17)
[2020-08-02] MEDS: INSULIN (NOVOLOG) ASPART 100 UNITS/ML 10ML VIAL SQ SCH ×3 (06:51→16:56)
[2020-08-02] MEDS: ASPIRIN 81 MG CHEWABLE TABLETS PO SCH (10:18)
[2020-08-02] MEDS: PRENATAL VITAMINS W/ FOLIC ACID TABLET (FP) PO SCH (10:18)
[2020-08-02] MEDS: QUEtiapine FUMARATE 50 MG TABLET PO SCH (10:18)
[2020-08-02] MEDS: BENZOCAINE 20 % GEL TUBE MM PRN (14:23)
[2020-08-02] MEDS: LIDOCAINE VISCOUS 2% ORAL/TOP 20 ML UNIT-DOSE CUP MM PRN (21:13)
[2020-08-02] MEDS: QUEtiapine FUMARATE 300 MG TABLET PO SCH (21:13)
[2020-08-02] MEDS: SUVOREXANT 10 MG TABLET PO PRN (21:13)
[2020-08-02] MEDS: THIAMINE HCL 100 MG TABLET (FP) PO SCH (21:14)
[2020-08-02] MEDS: ATORVASTATIN CA 40 MG TABLET (FP) PO SCH (21:16)
[2020-08-02] MEDS: INSULIN (LEVEMIR) 100 UNITS/ML UNITS SQ SCH (21:17)
[2020-08-03] MEDS: AMOXICILLIN 500 MG CAPSULE (FP) PO SCH ×3 (06:53→21:00)
[2020-08-03] MEDS ORDERED: INSULIN (NOVOLOG) ASPART 100 UNITS/ML 10ML VIAL ONE (07:01)
[2020-08-03] MEDS: INSULIN (NOVOLOG) ASPART 100 UNITS/ML 10ML VIAL SQ SCH ×3 (07:51→17:00)
[2020-08-03] MEDS: INSULIN SLIDING SCALE (NOVOLOG) 1 VIAL SQ SCH ×4 (07:53→20:59)
[2020-08-03] MEDS ORDERED: QUEtiapine FUMARATE 50 MG TABLET PO SCH ×2 (10:00→22:00)
[2020-08-03] MEDS: PRENATAL VITAMINS W/ FOLIC ACID TABLET (FP) PO SCH (10:17)
[2020-08-03] MEDS: ASPIRIN 81 MG CHEWABLE TABLETS PO SCH (10:18)
[2020-08-03] MEDS: QUEtiapine FUMARATE 50 MG TABLET PO SCH (10:18)
[2020-08-03] MEDS: IBUPROFEN 600 MG TABLET (FP) PO PRN ×2 (10:18→21:00)
[2020-08-03] MEDS: BENZOCAINE 20 % GEL TUBE MM PRN (10:19)
[2020-08-03] MEDS: INSULIN (LEVEMIR) 100 UNITS/ML UNITS SQ SCH (21:00)
[2020-08-03] MEDS: SUVOREXANT 10 MG TABLET PO PRN (21:00)
[2020-08-03] MEDS: THIAMINE HCL 100 MG TABLET (FP) PO SCH (21:00)
[2020-08-03] MEDS: QUEtiapine FUMARATE 300 MG TABLET PO SCH (21:00)
[2020-08-03] MEDS: ATORVASTATIN CA 40 MG TABLET (FP) PO SCH (21:01)
[2020-08-03] MEDS: LIDOCAINE VISCOUS 2% ORAL/TOP 20 ML UNIT-DOSE CUP MM PRN (21:02)
[2020-08-04] MEDS: AMOXICILLIN 500 MG CAPSULE (FP) PO SCH ×3 (06:48→21:12)
[2020-08-04] MEDS: INSULIN SLIDING SCALE (NOVOLOG) 1 VIAL SQ SCH ×4 (06:49→21:13)
[2020-08-04] MEDS: INSULIN (NOVOLOG) ASPART 100 UNITS/ML 10ML VIAL SQ SCH ×3 (06:49→16:55)
[2020-08-04] MEDS ORDERED: INSULIN (NOVOLOG) ASPART 100 UNITS/ML 10ML VIAL ONE ×3 (06:52→21:54)
[2020-08-04] MEDS: QUEtiapine FUMARATE 50 MG TABLET PO SCH (09:58)
[2020-08-04] MEDS: ASPIRIN 81 MG CHEWABLE TABLETS PO SCH (09:58)
[2020-08-04] MEDS: IBUPROFEN 600 MG TABLET (FP) PO PRN ×2 (09:59→21:12)
[2020-08-04] MEDS: PRENATAL VITAMINS W/ FOLIC ACID TABLET (FP) PO SCH (10:00)
[2020-08-04] MEDS: ATORVASTATIN CA 40 MG TABLET (FP) PO SCH (21:12)
[2020-08-04] MEDS: SUVOREXANT 10 MG TABLET PO PRN (21:12)
[2020-08-04] MEDS: QUEtiapine FUMARATE 300 MG TABLET PO SCH (21:12)
[2020-08-04] MEDS: THIAMINE HCL 100 MG TABLET (FP) PO SCH (21:13)
[2020-08-04] MEDS: INSULIN (LEVEMIR) 100 UNITS/ML UNITS SQ SCH (21:13)
[2020-08-05] MEDS ORDERED: INSULIN (NOVOLOG) ASPART 100 UNITS/ML 10ML VIAL ONE ×2 (06:54→11:45)
[2020-08-05] MEDS: AMOXICILLIN 500 MG CAPSULE (FP) PO SCH ×3 (06:54→21:12)
[2020-08-05] MEDS: IBUPROFEN 600 MG TABLET (FP) PO PRN ×2 (06:54→21:11)
[2020-08-05] MEDS: INSULIN (NOVOLOG) ASPART 100 UNITS/ML 10ML VIAL SQ SCH ×3 (08:12→16:29)
[2020-08-05] MEDS: INSULIN SLIDING SCALE (NOVOLOG) 1 VIAL SQ SCH ×4 (08:14→21:16)
[2020-08-05] MEDS: ASPIRIN 81 MG CHEWABLE TABLETS PO SCH (09:52)
[2020-08-05] MEDS: QUEtiapine FUMARATE 50 MG TABLET PO SCH (09:52)
[2020-08-05] MEDS: PRENATAL VITAMINS W/ FOLIC ACID TABLET (FP) PO SCH (09:52)
[2020-08-05] MEDS: ACETAMINOPHEN 325 MG TABLET (FP) PO PRN ×2 (09:55→17:26)
[2020-08-05] MEDS: SUVOREXANT 10 MG TABLET PO PRN (21:12)
[2020-08-05] MEDS: ATORVASTATIN CA 40 MG TABLET (FP) PO SCH (21:12)
[2020-08-05] MEDS: QUEtiapine FUMARATE 300 MG TABLET PO SCH (21:12)
[2020-08-05] MEDS: INSULIN (LEVEMIR) 100 UNITS/ML UNITS SQ SCH (21:13)
[2020-08-05] MEDS: THIAMINE HCL 100 MG TABLET (FP) PO SCH (21:49)
[2020-08-06] MEDS: IBUPROFEN 600 MG TABLET (FP) PO PRN ×2 (06:14→21:17)
[2020-08-06] MEDS: AMOXICILLIN 500 MG CAPSULE (FP) PO SCH ×3 (06:14→21:17)
[2020-08-06] MEDS ORDERED: INSULIN (NOVOLOG) ASPART 100 UNITS/ML 10ML VIAL ONE ×2 (06:15→11:59)
[2020-08-06] MEDS: INSULIN (NOVOLOG) ASPART 100 UNITS/ML 10ML VIAL SQ SCH ×3 (06:17→16:21)
[2020-08-06 07:02] VITALS: PULSE 82
[2020-08-06] MEDS: INSULIN SLIDING SCALE (NOVOLOG) 1 VIAL SQ SCH ×4 (07:14→21:18)
[2020-08-06] MEDS: PRENATAL VITAMINS W/ FOLIC ACID TABLET (FP) PO SCH (09:58)
[2020-08-06] MEDS: QUEtiapine FUMARATE 50 MG TABLET PO SCH (09:58)
[2020-08-06] MEDS: ASPIRIN 81 MG CHEWABLE TABLETS PO SCH (09:58)
[2020-08-06] MEDS: ACETAMINOPHEN 325 MG TABLET (FP) PO PRN (09:58)
[2020-08-06] MEDS: THIAMINE HCL 100 MG TABLET (FP) PO SCH (21:17)
[2020-08-06] MEDS: QUEtiapine FUMARATE 300 MG TABLET PO SCH (21:17)
[2020-08-06] MEDS: SUVOREXANT 10 MG TABLET PO PRN (21:17)
[2020-08-06] MEDS: ATORVASTATIN CA 40 MG TABLET (FP) PO SCH (21:17)
[2020-08-06] MEDS: INSULIN (LEVEMIR) 100 UNITS/ML UNITS SQ SCH (21:20)
[2020-08-07] MEDS: AMOXICILLIN 500 MG CAPSULE (FP) PO SCH ×3 (06:51→21:23)
[2020-08-07] MEDS ORDERED: INSULIN (NOVOLOG) ASPART 100 UNITS/ML 10ML VIAL ONE (07:31)
[2020-08-07] MEDS: INSULIN SLIDING SCALE (NOVOLOG) 1 VIAL SQ SCH ×4 (09:08→22:16)
[2020-08-07] MEDS: INSULIN (NOVOLOG) ASPART 100 UNITS/ML 10ML VIAL SQ SCH ×3 (09:10→17:02)
[2020-08-07] MEDS: ASPIRIN 81 MG CHEWABLE TABLETS PO SCH (09:12)
[2020-08-07] MEDS: PRENATAL VITAMINS W/ FOLIC ACID TABLET (FP) PO SCH (09:12)
[2020-08-07] MEDS: QUEtiapine FUMARATE 50 MG TABLET PO SCH (09:12)
[2020-08-07] MEDS ORDERED: cloNIDine HCL 0.1 MG TABLET PO PRN (14:38)
[2020-08-07] MEDS: MAG HYDROX/AL HYDROX/SIMETH 30 ML UNIT-DOSE CUP PO PRN (20:12)
[2020-08-07] MEDS: ATORVASTATIN CA 40 MG TABLET (FP) PO SCH (21:23)
[2020-08-07] MEDS: THIAMINE HCL 100 MG TABLET (FP) PO SCH (21:23)
[2020-08-07] MEDS: SUVOREXANT 10 MG TABLET PO PRN (21:23)
[2020-08-07] MEDS: QUEtiapine FUMARATE 300 MG TABLET PO SCH (21:23)
[2020-08-07] MEDS ORDERED: SUVOREXANT 10 MG TABLET PO PRN (22:00)
[2020-08-07] MEDS: INSULIN (LEVEMIR) 100 UNITS/ML UNITS SQ SCH (22:15)
[2020-08-07] MEDS: IBUPROFEN 600 MG TABLET (FP) PO PRN (22:17)
[2020-08-08 06:36] VITALS: BP 140/88; TEMP 97.5
[2020-08-08] MEDS: AMOXICILLIN 500 MG CAPSULE (FP) PO SCH (07:10)
[2020-08-08] MEDS: IBUPROFEN 600 MG TABLET (FP) PO PRN (07:11)
[2020-08-08] MEDS: INSULIN (NOVOLOG) ASPART 100 UNITS/ML 10ML VIAL SQ SCH (07:15)
[2020-08-08] MEDS: INSULIN SLIDING SCALE (NOVOLOG) 1 VIAL SQ SCH (07:16)
[2020-08-08] MEDS ORDERED: INSULIN (NOVOLOG) ASPART 100 UNITS/ML 10ML VIAL ONE (07:18)
--- NOTE | 2020-08-08 08:57 | PN ---
[facility] Progress Note Note: Patient is discharged today. Scripts for 30 days supply of medications(Seroquel 50 mg/day & 300 mg/hs) are electronically transmitted to [id number] [facility], [facility], [address] [place], [place] [id number]
--- NOTE | 2020-08-08 15:55 | DS ---
[facility] Rehab Discharge Summary - [facility] Rehab Discharge Summary Admission Date: 07/25/20 Discharge Date: 08/08/20 - History Present History: Alcohol dependence, Cannabis dependence, Cocaine dependence Pertinent Past History: DM HLD Bipolar Disorder - Discharge Physical Exam Vital Signs: Vital Signs Temperature 97.5 F L 08/08/20 06:29 Pulse Rate 82 08/08/20 06:29 Respiratory Rate 18 08/08/20 06:29 Blood Pressure 140/88 08/08/20 06:29 O2 Sat by Pulse Oximetry (%) 96 08/08/20 06:29 vss Alert o x 3 nad,no resp difficulty oob ambulating with steady gait MSK:Active FROM,all limbs Pertinent Admission Physical Exam Findings: Laboratory Tests 07/25/20 07/25/20 07/26/20 16:51 20:05 07:45 POC Glucometer 353 362 HIV Ag/Ab Combo Qual Negative 07/26/20 07/26/20 07/26/20 08:12 11:37 16:51 POC Glucometer 173 134 204 HIV Ag/Ab Combo Qual 07/26/20 07/27/20 07/27/20 21:21 06:36 12:11 POC Glucometer 308 187 186 HIV Ag/Ab Combo Qual 07/27/20 07/27/20 07/28/20 16:42 20:46 06:09 POC Glucometer 272 276 240 HIV Ag/Ab Combo Qual 07/28/20 07/28/20 07/28/20 12:06 16:40 21:15 POC Glucometer 193 185 303 HIV Ag/Ab Combo Qual 07/29/20 07/29/20 07/29/20 06:34 11:56 16:58 POC Glucometer 227 252 286 HIV Ag/Ab Combo Qual 07/29/20 07/30/20 07/30/20 21:08 07:20 11:56 POC Glucometer 301 193 221 HIV Ag/Ab Combo Qual 07/30/20 07/30/20 07/31/20 17:05 21:17 06:51 POC Glucometer 267 293 247 HIV Ag/Ab Combo Qual 07/31/20 07/31/20 07/31/20 12:03 16:37 20:44 POC Glucometer 183 334 248 HIV Ag/Ab Combo Qual 08/01/20 08/01/20 08/01/20 06:24 11:49 16:27 POC Glucometer 184 302 201 HIV Ag/Ab Combo Qual 08/01/20 08/02/20 08/02/20 20:55 06:44 11:44 POC Glucometer 235 249 268 HIV Ag/Ab Combo Qual 08/02/20 08/02/20 08/03/20 16:55 20:02 06:52 POC Glucometer 215 227 216 HIV Ag/Ab Combo Qual 08/03/20 08/03/20 08/03/20 11:51 16:58 20:56 POC Glucometer 250 159 346 HIV Ag/Ab Combo Qual 08/04/20 08/04/20 08/04/20 06:47 11:58 16:52 POC Glucometer 230 266 239 HIV Ag/Ab Combo Qual 08/04/20 08/05/20 08/05/20 20:03 06:52 11:44 POC Glucometer 210 253 156 HIV Ag/Ab Combo Qual 08/05/20 08/05/20 08/06/20 16:27 20:23 06:13 POC Glucometer 193 200 257 HIV Ag/Ab Combo Qual 08/06/20 08/06/20 08/06/20 11:58 16:19 20:35 POC Glucometer 331 232 216 HIV Ag/Ab Combo Qual 08/07/20 08/07/20 08/07/20 06:50 11:58 16:59 POC Glucometer 259 196 427 HIV Ag/Ab Combo Qual 08/07/20 08/08/20 20:11 07:10 POC Glucometer 177 237 HIV Ag/Ab Combo Qual - Treatment Discharge Condition: Discharge condition good, Rehabilitated safely, Responded well, Outpatient referral accepted Hospital Course: Cd aftercare accepted to [facility] - Medication Discharge Medications: Ambulatory Orders Folic Acid 1 mg PO DAILY 07/20/20 Insulin Glargine,Hum.rec.anlog [Basaglar Kwikpen U-100] 20 unit SCJ HS 07/20/20 Insulin Lispro [Humalog] 5 unit SQ TID 07/20/20 Multivitamin [Tab-A-Hailey] 1 tablet PO DAILY 07/20/20 Thiamine Mononitrate [Vitamin B-1] 100 mg PO DAILY 07/20/20 Insulin (Novolog) [Novolog -] 0 units SQ ACHS units 07/25/20 Aspirin [ASA -] 1 tablet PO DAILY #14 tab.chew 08/07/20 Atorvastatin Ca [Lipitor] 40 mg PO HS #14 tablet 08/07/20 Quetiapine Fumarate [Seroquel -] 50 mg PO DAILY #30 tablet 08/08/20 Quetiapine Fumarate [Seroquel -] 300 mg PO HS #30 tablet 08/08/20 - Medication-Assisted Treatment (MAT) Medication-Assisted Treatment (MAT): No - Discharge Instructions Diet, activity, other medical instructions: Diet:JESSICA/NCS Activity: oob ad mireille Other medical instructions:follow up with [facility] management [facility] as recommended. - Diagnosis (1) Alcohol use disorder Status: Chronic (2) Cannabis dependence Status: Chronic (3) Cocaine dependence Status: Chronic Qualifiers: Substance use status: uncomplicated Qualified Code(s): F14.20 - Cocaine dependence, uncomplicated (4) Hyperlipidemia Status: Chronic Qualifiers: Hyperlipidemia type: unspecified Qualified Code(s): E78.5 - Hyperlipidemia, unspecified (5) Nicotine dependence Status: Chronic Qualifiers: Nicotine product type: cigarettes Substance use status: uncomplicated Qualified Code(s): F17.210 - Nicotine dependence, cigarettes, uncomplicated (6) IDDM (insulin dependent diabetes mellitus) Status: Chronic - Follow-up Referral Minutes to complete discharge: 25 - AMA Did Patient Leave Against Medical Advice: No Additional Comments: [facility] Rx for Aspirin 81 mg po daily #14 and Lipitor 40 mg po hs #14 electronically sent to [facility] [id number] [facility] for pick remover.
== END 2020-08-08 08:55 | disposition home or self-care (01) | DRG 772 ==
LOC: YASAS 14:07 → UNDOADMIN 14:08 → Y5N 14:08 → UNDODISIN 08-08 08:55
PROVIDERS: ADMIT Allergy & Immunology; ATTEND Allergy & Immunology
PROC: HZ42ZZZ Group Counseling for Substance Abuse Treatment, Cognitive-Behavioral (ICD-10-PCS; principal; 2020-07-25)
DX: F10.20 Alcohol dependence, uncomplicated (principal); F14.20 Cocaine dependence, uncomplicated; F12.20 Cannabis dependence, uncomplicated; F17.210 Nicotine dependence, cigarettes, uncomplicated; F19.282 Other psychoactive substance dependence with psychoactive substance-induced sleep disorder; F20.9 Schizophrenia, unspecified; F41.9 Anxiety disorder, unspecified; F32.9 Major depressive disorder, single episode, unspecified; E78.5 Hyperlipidemia, unspecified; E11.9 Type 2 diabetes mellitus without complications; Z79.4 Long term (current) use of insulin; K08.89 Other specified disorders of teeth and supporting structures; K02.9 Dental caries, unspecified; K05.10 Chronic gingivitis, plaque induced; Z98.49 Cataract extraction status, unspecified eye; Z56.0 Unemployment, unspecified; Z59.0 Homelessness
CPT/HCPCS: 36415; 82962; 87389